=== PATIENT | male | born 1960 | race Caucasian/White ===

== ENCOUNTER 2022-11-11 10:30 | Emergency (ER) | payer OTHER ==
[~2022-11-11] VITALS: Ht 170.2 cm; Wt 63.5 kg
[~2022-11-11 10:30] MED LIST: ASPI325 PO; CHLO4 PO; CHOL10002 PO; Haldol 5 mg Tab5 MG PO; Hydrochloroth12.5 MG PO; MOMENI; NIAC500ER PO; NORT25 PO; PRAV20 PO; RANI150 PO; TRAZ100 PO; Trihexyphenidyl5 MG PO
[2022-11-11] MEDS ORDERED: ACET500 PO (10:51)
[2022-11-11 10:54] LABS: Hematocrit 39.3 % (37.0-53.0); Hemoglobin 13.5 g/dL (13.5-17.5); Mean Corpuscular HGB Conc 34.4 g/dL (31.5-36.5); Mean Corpuscular Volume 90 fL (80-100); Platelet Count 205 K/mm3 (150-400); RDW Coefficient Variation 13.8 % (11.7-14.2); RDW Standard Deviation 45.3 fL (35.1-46.3); Red Blood Cell Count 4.36 M/mm3 (4.30-5.90)
[2022-11-11 10:57] LABS: Mean Platelet Volume 13.5 fL (9.1-12.4); White Blood Cell Count 10.18 K/mm3 (4.00-11.30)
[2022-11-11 11:03] LABS: Albumin/Globulin Ratio 0.9 (0.8-1.8); Bilirubin, Total 0.4 mg/dL (0.1-1.0); Bun/Creatinine Ratio 18.6 (12.0-20.0); Calcium, Blood 7.9 mg/dL (8.5-10.1); Creatinine, Blood 0.91 mg/dL (0.60-1.20); Globulin, Blood 3.3 g/dL (2.2-4.0); Magnesium, Blood 1.8 mg/dL (1.6-2.4); Potassium, Blood 3.6 mmol/L (3.5-5.5); Total Protein, Blood 6.3 g/dL (6.4-8.2)
[2022-11-11 11:17] LABS: BASOPHILS PERCENT MAN 1 % (0-2); EOSINOPHILS PERCENT MAN 2 % (0-6); LYMPHOCYTES ABSOLUTE MAN 1.62 K/mm3 (0.84-5.20); LYMPHOCYTES PERCENT MAN 16 % (21-46); MONOCYTES PERCENT MAN 2 % (4-13); NEUTROPHILS ABSOLUTE MAN 8.04 K/mm3 (1.96-9.15); SEG NEUTROPHILS PERCENT MAN 79 % (41-73); TOTAL CELLS COUNTED 100
[2022-11-11 14:30] VITALS: BP 126/81
== END 2022-11-11 15:27 | disposition home or self-care (01) ==
LOC: ER 10:30
PROVIDERS: Emergency Medicine
DX: I95.9 Hypotension, unspecified (principal); I45.81 Long QT syndrome; Z88.8 Allergy status to other drugs, medicaments and biological substances; V47.5XXA Car driver injured in collision with fixed or stationary object in traffic accident, initial encounter
CPT/HCPCS: 71046; 80053; 83735; 84484; 85025; 93005; 93010; 96365; 96366; 99284-25; J3475

== ENCOUNTER 2022-11-20 07:19 | Observation (INO) | payer OTHER ==
[~2022-11-20] VITALS: Ht 175.3 cm; Wt 50.1 kg
[~2022-11-20 07:19] MED LIST changes: +ACET500 PO
[2022-11-20 10:12] LABS: BASOPHILS ABSOLUTE AUTO 0.08 K/mm3 (0.00-0.23); BASOPHILS PERCENT AUTO 1 % (0-2); EOSINOPHILS ABSOLUTE AUTO 0.15 K/mm3 (0.00-0.68); EOSINOPHILS PERCENT AUTO 2 % (0-6); Hematocrit 40.6 % (37.0-53.0); Hemoglobin 13.8 g/dL (13.5-17.5); IMMATURE GRAN ABSOLUTE AUTO 0.02 K/mm3 (0.00-0.10); IMMATURE GRAN PERCENT AUTO 0 % (0-1); LYMPHOCYTES ABSOLUTE AUTO 1.22 K/mm3 (0.84-5.20); LYMPHOCYTES PERCENT AUTO 16 % (21-46); MONOCYTES ABSOLUTE AUTO 0.45 K/mm3 (0.16-1.47); MONOCYTES PERCENT AUTO 6 % (4-13); Mean Corpuscular HGB 30.7 pg (26.0-34.0); Mean Corpuscular Volume 90 fL (80-100); NEUTROPHILS ABSOLUTE AUTO 5.81 K/mm3 (1.96-9.15); NEUTROPHILS PERCENT AUTO 75 % (41-73); Platelet Count 199 K/mm3 (150-400); RDW Coefficient Variation 13.6 % (11.7-14.2); RDW Standard Deviation 45.2 fL (35.1-46.3); White Blood Cell Count 7.73 K/mm3 (4.00-11.30)
[2022-11-20 10:19] LABS: Mean Platelet Volume 13.5 fL (9.1-12.4)
[2022-11-20 10:31] LABS: Albumin, Blood 3.2 g/dL (3.4-5.0); Bilirubin, Total 0.3 mg/dL (0.1-1.0); Bun/Creatinine Ratio 20.3 (12.0-20.0); Calcium, Blood 8.1 mg/dL (8.5-10.1); Creatinine, Blood 0.89 mg/dL (0.60-1.20); Globulin, Blood 3.3 g/dL (2.2-4.0); Potassium, Blood 4.2 mmol/L (3.5-5.5); Total Protein, Blood 6.5 g/dL (6.4-8.2)
[2022-11-20 16:12] VITALS: BP 136/108
[2022-11-20] MEDS ORDERED: MULVITA PO (16:30)
--- NOTE | 2022-11-20 16:47 | NUR ---
Pt arrived to 311 via gurney from ED, report from supervisor propellant charge loading, pt able to transfer to bed indep, a/ox4, pleasant and cooperative with care, follows commands well, denies pain, states hes just a bit sob, sats are 92-93% on r/a, no cough noted, hrr, lungs are clear a bit dim in bases, resp mildly labored at rest, hrr, no edema noted, ppp+2, cap refill <3sec, vs stable, afebrile, piv site to rfa site is clear and patent, btx4, abd flat soft nontender, voids without diff, skin c/w/d, maew, gerard, oriented to room layout and call system, call light in reach.
--- NOTE | 2022-11-20 18:19 | NUR ---
pt requested breathing tx, called RT, he will come up when he is able, sitting on the side of the bed for dinner, no further changes, call light in reach.
[2022-11-20 19:18] VITALS: BP 135/104
[2022-11-21 02:51] VITALS: BP 156/124
--- NOTE | 2022-11-21 04:32 | NUR ---
SHIFT SUMMARY; NO ACUTE CHANGES OVERNIGHT. THE PT IS AXO X4 AND INDEPENDENT IN THE ROOM. THE PT HAS BEEN SLEEPING FOR THE MAJORITY OF THE NIGHT. THE PTS B/P'S HAVE BEEN ELEVATED, DBP HAS YET TO BE <100. CALLED TRUONG, 1 TIME ORDER OF 10MG OF HYDRALAZINE OBTAINED. THE PT DENIES ANY CHEST PAIN/PRESSURE, PAIN, SOB OR N/V. CURRENTLY THE PT IS SLEEPING IN BED WITH THE BED IN THE LOWEST POSITION AND THE CALL LIGHT AT BEDSIDE. FIRE SAFETY MAINTAINED T/O THE NIGHT.
[2022-11-21 05:43] LABS: BASOPHILS ABSOLUTE AUTO 0.09 K/mm3 (0.00-0.23); BASOPHILS PERCENT AUTO 1 % (0-2); EOSINOPHILS ABSOLUTE AUTO 0.17 K/mm3 (0.00-0.68); EOSINOPHILS PERCENT AUTO 2 % (0-6); Hematocrit 43.2 % (37.0-53.0); Hemoglobin 14.6 g/dL (13.5-17.5); IMMATURE GRAN ABSOLUTE AUTO 0.02 K/mm3 (0.00-0.10); IMMATURE GRAN PERCENT AUTO 0 % (0-1); LYMPHOCYTES ABSOLUTE AUTO 1.68 K/mm3 (0.84-5.20); LYMPHOCYTES PERCENT AUTO 21 % (21-46); MONOCYTES ABSOLUTE AUTO 0.61 K/mm3 (0.16-1.47); MONOCYTES PERCENT AUTO 8 % (4-13); Mean Corpuscular HGB 30.5 pg (26.0-34.0); Mean Corpuscular HGB Conc 33.8 g/dL (31.5-36.5); Mean Corpuscular Volume 90 fL (80-100); NEUTROPHILS ABSOLUTE AUTO 5.41 K/mm3 (1.96-9.15); NEUTROPHILS PERCENT AUTO 68 % (41-73); Platelet Count 205 K/mm3 (150-400); RDW Coefficient Variation 13.6 % (11.7-14.2); RDW Standard Deviation 45.7 fL (35.1-46.3); Red Blood Cell Count 4.78 M/mm3 (4.30-5.90); White Blood Cell Count 7.98 K/mm3 (4.00-11.30)
[2022-11-21 05:44] LABS: Mean Platelet Volume 13.7 fL (9.1-12.4)
[2022-11-21 06:07] LABS: Bun/Creatinine Ratio 20.8 (12.0-20.0); Calcium, Blood 8.7 mg/dL (8.5-10.1); Creatinine, Blood 0.86 mg/dL (0.60-1.20); Potassium, Blood 3.7 mmol/L (3.5-5.5)
[2022-11-21 06:27] VITALS: BP 152/111
--- NOTE | 2022-11-21 07:48 | NUR ---
START OF SHIFT THIS NURSE ASSUMED CARE OF PT UNDER THE OBSERVATION OF MISTI SYKES AT 0730. PT VERBALIZES NO PAIN. PT UP TO BEDSIDE. ROOM CLEAR OF DEBRIS, BED LOCKED AND IN LOW POSITION. PT LEFT WITH CALL LIGHT WITHIN REACH.
[2022-11-21 08:06] VITALS: BP 133/102
[2022-11-21 08:16] VITALS: BP 140/103
--- NOTE | 2022-11-21 09:29 | NUR ---
DOCTOR IN PATIENT ROOM AROUND 0915 TO DISCUSS DISCHARGE REQUIREMENTS. PT EDUCATED ON COPD AND NEW MEDICATIONS. DR TO FOLLOW UP WITH CARE MANAGEMENT. PT LEFT IN A STATE OF SAFETY, PREFFERED EDUCATION METHOD VERBALIZED TEACH BACK BY PT.
--- NOTE | 2022-11-21 12:20 | NUR ---
PT ASSISTED INTO SHOWER AROUND 1130. IV SITE COVERED DURING SHOWER. PT TAKEN OFF TELEMETRY DURING SHOWER, MANAGEMENT ENGINEER NOTIFIED. PT TOLERATED SHOWER WELL, AMBULATED INDEPENDENTLY BACK TO BED. TELEMETRY RESUMED AROUND 1200. PT LEFT IN A STATE OF COMFORT AND SAFETY WITH CALL LIGHT WITHIN REACH, BED IN LOW POSITION AND LOCKED, ROOM CLEAR OF DEBRIS. ANTIBIOTICS STARTED AT AROUND 1215.
--- NOTE | 2022-11-21 15:53 | NUR ---
Upon receiving a referral for spieitual care, I visited the pt. He immediately talked at length about his family history (which consisted mostly of multimillionaires and doctors), his very unique spiritual views and his theories about the earth bumping along in the universe protected by the ozone layers as it moves from one unniverse to another. He shares his many thoughts about aliens and his 7mo experience of being in the . I provide therapeutic listening and a blessing. There was minimal space speak. I will continue to remain available.
[2022-11-21 16:06] VITALS: BP 135/100
[2022-11-21] MEDS ORDERED: ALBU90OI INH (16:09)
[2022-11-21] MEDS ORDERED: GUAI600T33 PO (16:10)
[2022-11-21] MEDS ORDERED: LOSA50 PO (16:11)
[2022-11-21] MEDS ORDERED: METO25ER PO (16:12)
[2022-11-21] MEDS ORDERED: VISBIOME 112.51 EACH PO (16:13)
[2022-11-21] MEDS ORDERED: CEFD300 PO (16:13)
[2022-11-21] MEDS ORDERED: FURO20 PO (16:14)
[2022-11-21] MEDS ORDERED: POTA10T PO (16:15)
--- NOTE | 2022-11-21 17:20 | NUR ---
PT DISCHARGED TO HOME AND LEFT UNIT VIA W/C AROUND 1630. PT VERBALIZED UNDERSTANDING DISCHARGE TEACHING. PT LEFT VIA [facility] TO [facility]. 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 NO BELONGINGS LEFT IN ROOM, ALL BELONGINGS TAKEN WITH PT. PERIPHERAL IV REMOVED, PT TOLERATED REMOVAL WELL WITH NO SIGNS OF INFLAMATION.
== END 2022-11-21 16:34 | disposition home or self-care (01) ==
LOC: ER 07:19 → MEDS 07:20 → ENPENDDIS 11-21 15:20 → MEDS 11-21 16:34
PROVIDERS: Family Medicine Adult Medicine; ADMIT Internal Medicine
DX: I50.9 Heart failure, unspecified (principal); F17.200 Nicotine dependence, unspecified, uncomplicated; F20.0 Paranoid schizophrenia; J44.9 Chronic obstructive pulmonary disease, unspecified; Z88.0 Allergy status to penicillin
CPT/HCPCS: 36415; 71045; 80048; 80053; 83880; 84484; 85025; 93005; 93010; 94640; 94664; 94760; 96372; 96374; 96375; 96376; 99285-25; A9270; C8929; G0378; J0360; J0696; J1650; J1940; J7050; Q9957